=== PATIENT | male | born 1985 | race Two or more races ===

== ENCOUNTER 2024-06-20 13:26 | Inpatient (IN) | payer BC, OTHER ==
[~2024-06-20] VITALS: Ht 175.3 cm; Wt 92.0 kg
[2024-06-20] MEDS: haloperidol lactate 5mg/ml inj IVH ONE (14:02)
[2024-06-20 14:13] LABS: EOSINOPHILS # (AUTO) 0.1 X10'3 (0-0.9); HEMOGLOBIN 7.5 g/dl (14.0-17.9); MONOCYTES # (AUTO) 0.7 X10'3 (0-0.9); MONOCYTES % (AUTO) 12.1 % (2-12)
[2024-06-20 14:14] LABS: BASOPHILS # (AUTO) 0.2 X10'3 (0-0.2); BASOPHILS % (AUTO) 3.1 % (0-1); HEMATOCRIT 24.1 % (42.0-52.0); LYMPHOCYTES # (AUTO) 1.3 X10'3 (1.1-4.8); LYMPHOCYTES % (AUTO) 23.2 % (21-51); MEAN CORPUSCULAR HGB CONC 31.2 g/dL (33.0-36.5); MEAN PLATELET VOLUME 9.4 FL (7.4-10.4); NEUTROPHILS # (AUTO) 3.4 X10'3 (1.8-7.7); NEUTROPHILS % (AUTO) 59.6 % (42-75); PLATELET COUNT 63 X10'3 (140-440); RED BLOOD COUNT 2.68 X10'6 (4.70-6.10); RED CELL DISTRIBUTION WIDTH 17.8 % (11.5-14.5); WHITE BLOOD COUNT 5.7 X10'3 (4.5-11.0)
[2024-06-20 14:22] LABS: APTT 29 SECONDS (22-32); INR 1.2 INR; PROTHROMBIN TIME 12.7 SECONDS (9.0-12.0)
[2024-06-20 14:26] LABS: ALANINE AMINOTRANSFERASE 40 U/L (12-78); ALBUMIN 3.5 G/DL (3.4-5.0); ALBUMIN/GLOBULIN RATIO 0.7 (1.1-1.5); ALKALINE PHOSPHATASE 151 IU/L (46-116); ANION GAP 9 (8-16); ASPARTATE AMINO TRANSFERASE 102 U/L (10-37); BILIRUBIN,TOTAL 0.6 MG/DL (0.1-1.0); BLOOD UREA NITROGEN 6 MG/DL (7-18); BUN/CREATININE RATIO 8.2 (10.0-20.0); CALCIUM 8.5 MG/DL (8.5-10.1); CHLORIDE 106 MMOL/L (99-107); CREATININE 0.73 MG/DL (0.60-1.10); ETHANOL 167 MG/DL (<10); GLUCOSE 107 MG/DL (70-104); MAGNESIUM 1.9 MG/DL (1.5-2.4); POTASSIUM 4.1 MMOL/L (3.5-5.1); SODIUM 142 MMOL/L (135-145); TOTAL CARBON DIOXIDE 27.5 MMOL/L (24-32); TOTAL PROTEIN 8.2 G/DL (6.4-8.2); eCRCL 139 ML/MIN; eGFR > 90 ML/MIN
[2024-06-20] MEDS ORDERED: pantoprazole 40MG/NS 100ML BAG 100 ML IV ONE (14:30)
[2024-06-20] MEDS ORDERED: LORA-269 PO (14:56)
[2024-06-20] MEDS ORDERED: DIVA-76 PO (14:56)
[2024-06-20] MEDS ORDERED: LISI20TA28 PO (14:56)
[2024-06-20] MEDS: pantoprazole 40MG/NS 100ML BAG 100 ML IV ONE (14:57)
[2024-06-20 15:28] LABS: ANISOCYTOSIS 1+; PLATELET ESTIMATE DECREASED; TARGET CELLS 1+
[2024-06-20] MEDS: diazepam inj 5 MG/ML inj. IV ONE (16:24)
[2024-06-20] MEDS ORDERED: magnesium sulf-water 2g/50mL 50 ML IV PRN (17:00)
[2024-06-20] MEDS ORDERED: potassium Cl 20 mEq SR tablet PO PRN ×2 (17:00)
[2024-06-20] MEDS ORDERED: magnesium Cl slow-release 64mg tablet PO PRN (17:00)
[2024-06-20] MEDS ORDERED: ondansetron/PF 4mg/2ml inj IV PRN (17:00)
[2024-06-20] MEDS ORDERED: magnesium sulf-water 4G/100mL 100 ML IV PRN (17:00)
[2024-06-20] MEDS ORDERED: mag hydrox/Alum hydrox/simeth 30ml oral suspension PO PRN (17:00)
[2024-06-20] MEDS ORDERED: potassium Cl 40MEQ/1/2NS 520ml 520 ML IV PRN (17:00)
[2024-06-20] MEDS: pantoprazole 40MG/NS 100ML BAG 100 ML IV SCH (17:40)
[2024-06-20 17:50] LABS: LIPASE 54 U/L (16-77)
[2024-06-20 18:22] LABS: BILIRUBIN,URINE NEGATIVE (Neg); CLARITY,URINE CLEAR (Clear); COLOR,URINE YELLOW (Yellow); GLUCOSE, URINE NEGATIVE (Neg); KETONES,URINE NEGATIVE (Neg); LEUKOCYTE ESTERASE ,URINE NEGATIVE (Neg); NITRITES, URINE NEGATIVE (Neg); OCCULT BLOOD,URINE NEGATIVE (Neg); PH,URINE 6.5 (4.8-8.0); PROTEIN,URINE NEGATIVE (Neg); UROBILINOGEN,URINE 0.2 E.U/dL (0.2-1.0)
[2024-06-20] MEDS: octreotide inj. 500 MCG in normal saline 100ml IV soln 97.5 ML IV SCH (18:29)
[2024-06-20] MEDS: normal saline 1000ml 1,000 ML IV SCH (18:30)
[2024-06-20 18:31] LABS: UA COLLECTION TYPE URINAL; URINE AMPHETAMINE SCREEN NEGATIVE (Neg); URINE BARBITUATE SCREEN NEGATIVE (Neg); URINE BENZODIAZEPINES SCREEN NEGATIVE (Neg); URINE CANNABINOID SCREEN NEGATIVE (Neg); URINE COCAINE SCREEN NEGATIVE (Neg); URINE METHADONE SCREEN NEGATIVE (Neg); URINE OPIATE SCREEN NEGATIVE (Neg); URINE PHENCYCLIDINE SCREEN NEGATIVE (Neg)
[2024-06-20] MEDS: LORazepam 2 mg/ml vial IV PRN (19:38)
[2024-06-20] MEDS: docusate sod 100mg capsule PO SCH (20:00)
[2024-06-20] MEDS ORDERED: pantoprazole 40MG/NS 100ML BAG 100 ML IV SCH ×2 (20:00→21:00)
[2024-06-20] MEDS: K and/or MAG REPLACEMENT MC SCH (20:00)
[2024-06-20] MEDS: thiamine 100mg/ml 2ml inj. IV SCH (21:30)
[2024-06-21] VITALS (11 sets, daily range): BP systolic 104–144; BP diastolic 67–82; PULSE 83–110; RESP 16–22; TEMP 98.5–101.1; O2SAT 96–100
[2024-06-21] MEDS: folic acid 1mg/0.2ml inj IV SCH (07:27)
[2024-06-21] MEDS: lisinopril 20mg tablet PO SCH (08:25)
[2024-06-21 08:32] LABS: ALANINE AMINOTRANSFERASE 41 U/L (12-78); ALBUMIN 3.4 G/DL (3.4-5.0); ALBUMIN/GLOBULIN RATIO 0.7 (1.1-1.5); ALKALINE PHOSPHATASE 128 IU/L (46-116); ANION GAP 7 (8-16); ASPARTATE AMINO TRANSFERASE 103 U/L (10-37); BILIRUBIN,TOTAL 1.3 MG/DL (0.1-1.0); BLOOD UREA NITROGEN 8 MG/DL (7-18); BUN/CREATININE RATIO 9.2 (10.0-20.0); CALCIUM 8.6 MG/DL (8.5-10.1); CHLORIDE 98 MMOL/L (99-107); CREATININE 0.87 MG/DL (0.60-1.10); GLUCOSE 142 MG/DL (70-104); PHOSPHORUS 3.7 MG/DL (2.3-4.5); POTASSIUM 4.1 MMOL/L (3.5-5.1); SODIUM 134 MMOL/L (135-145); TOTAL CARBON DIOXIDE 28.6 MMOL/L (24-32); TOTAL PROTEIN 8.2 G/DL (6.4-8.2); eCRCL 116 ML/MIN; eGFR > 90 ML/MIN
[2024-06-21 08:34] LABS: BASOPHILS # (AUTO) 0.2 X10'3 (0-0.2); EOSINOPHILS # (AUTO) 0.2 X10'3 (0-0.9); HEMOGLOBIN 7.8 g/dl (14.0-17.9); INR 1.3 INR; PLATELET COUNT 53 X10'3 (140-440); PROTHROMBIN TIME 13.5 SECONDS (9.0-12.0); RED CELL DISTRIBUTION WIDTH 17.6 % (11.5-14.5); WHITE BLOOD COUNT 6.4 X10'3 (4.5-11.0)
[2024-06-21 08:35] LABS: BASOPHILS % (AUTO) 2.5 % (0-1); EOSINOPHILS % (AUTO) 2.6 % (0-6); HEMATOCRIT 24.6 % (42.0-52.0); LYMPHOCYTES # (AUTO) 1.6 X10'3 (1.1-4.8); LYMPHOCYTES % (AUTO) 24.7 % (21-51); MEAN CORPUSCULAR HEMOGLOBIN 28.2 PG (27.0-31.0); MEAN CORPUSCULAR HGB CONC 31.7 g/dL (33.0-36.5); MEAN PLATELET VOLUME 9.5 FL (7.4-10.4); MONOCYTES # (AUTO) 0.8 X10'3 (0-0.9); MONOCYTES % (AUTO) 13.2 % (2-12); NEUTROPHILS # (AUTO) 3.6 X10'3 (1.8-7.7); RED BLOOD COUNT 2.76 X10'6 (4.70-6.10)
[2024-06-21] MEDS ORDERED: LIDOcaine 2% Viscous 15ml cup ONE (10:35)
[2024-06-21] MEDS ORDERED: fentaNYL/PF 50MCG/1 ML 2ML syringe ONE (10:35)
[2024-06-21] MEDS ORDERED: MIDAZolam 1 MG/ML 5ML VIAL ONE (10:35)
[2024-06-21] MEDS ORDERED: PEG 3350/Na sulf,bicarb,Cl/KCl oral sol 4 liter bottle PO ONE (11:10)
[2024-06-21] MEDS: PEG 3350/Na sulf,bicarb,Cl/KCl oral sol 4 liter bottle PO ONE (17:04)
[2024-06-21] MEDS: acetaminophen 325mg tablet PO PRN (21:30)
[2024-06-22] VITALS (8 sets, daily range): BP systolic 105–142; BP diastolic 57–85; PULSE 97–104; RESP 14–20; TEMP 98.2–100.3; O2SAT 97–99
[2024-06-22 07:03] LABS: BASOPHILS # (AUTO) 0.1 X10'3 (0-0.2); EOSINOPHILS # (AUTO) 0.1 X10'3 (0-0.9); HEMOGLOBIN 7.8 g/dl (14.0-17.9); LYMPHOCYTES # (AUTO) 1.8 X10'3 (1.1-4.8); MEAN CORPUSCULAR HEMOGLOBIN 27.4 PG (27.0-31.0); PLATELET COUNT 56 X10'3 (140-440); RED BLOOD COUNT 2.85 X10'6 (4.70-6.10)
[2024-06-22 07:05] LABS: BASOPHILS % (AUTO) 1.1 % (0-1); EOSINOPHILS % (AUTO) 0.5 % (0-6); MEAN CORPUSCULAR HGB CONC 31.2 g/dL (33.0-36.5); MEAN CORPUSCULAR VOLUME 87.7 FL (78-98); MEAN PLATELET VOLUME 9.9 FL (7.4-10.4); MONOCYTES # (AUTO) 1.3 X10'3 (0-0.9); MONOCYTES % (AUTO) 12.6 % (2-12); NEUTROPHILS # (AUTO) 7.3 X10'3 (1.8-7.7); NEUTROPHILS % (AUTO) 68.8 % (42-75); RED CELL DISTRIBUTION WIDTH 17.6 % (11.5-14.5); WHITE BLOOD COUNT 10.7 X10'3 (4.5-11.0)
[2024-06-22 07:07] LABS: INR 1.3 INR; PROTHROMBIN TIME 14.1 SECONDS (9.0-12.0)
[2024-06-22 07:31] LABS: ALANINE AMINOTRANSFERASE 36 U/L (12-78); ALBUMIN 3.4 G/DL (3.4-5.0); ALBUMIN/GLOBULIN RATIO 0.7 (1.1-1.5); ALKALINE PHOSPHATASE 119 IU/L (46-116); ANION GAP 8 (8-16); ASPARTATE AMINO TRANSFERASE 84 U/L (10-37); BILIRUBIN,TOTAL 1.5 MG/DL (0.1-1.0); BLOOD UREA NITROGEN 8 MG/DL (7-18); BUN/CREATININE RATIO 10.3 (10.0-20.0); CALCIUM 8.6 MG/DL (8.5-10.1); CHLORIDE 95 MMOL/L (99-107); CREATININE 0.78 MG/DL (0.60-1.10); GLUCOSE 111 MG/DL (70-104); PHOSPHORUS 3.5 MG/DL (2.3-4.5); POTASSIUM 3.6 MMOL/L (3.5-5.1); SODIUM 127 MMOL/L (135-145); TOTAL PROTEIN 8.2 G/DL (6.4-8.2); eCRCL 130 ML/MIN; eGFR > 90 ML/MIN
[2024-06-22] MEDS: pantoprazole 40mg Tablet.DR PO SCH (07:36)
[2024-06-22 07:43] LABS: ANISOCYTOSIS 1+; PLATELET ESTIMATE DECREASED; POIKILOCYTOSIS FEW; POLYCHROMASIA FEW; TARGET CELLS 1+
[2024-06-22 16:34] LABS: SODIUM,URINE RANDOM 163 MEQ/L
[2024-06-22 16:36] LABS: OSMOLALITY UA 656 MOSM/K (50-1400)
[2024-06-22 16:44] LABS: ALBUMIN 3.5 G/DL (3.4-5.0); ANION GAP 10 (8-16); BLOOD UREA NITROGEN 9 MG/DL (7-18); BUN/CREATININE RATIO 10.6 (10.0-20.0); CALCIUM 9.1 MG/DL (8.5-10.1); CHLORIDE 95 MMOL/L (99-107); CREATININE 0.85 MG/DL (0.60-1.10); GLUCOSE 107 MG/DL (70-104); POTASSIUM 3.8 MMOL/L (3.5-5.1); SODIUM 129 MMOL/L (135-145); TOTAL CARBON DIOXIDE 23.7 MMOL/L (24-32); eCRCL 119 ML/MIN; eGFR > 90 ML/MIN
[2024-06-23 02:00] VITALS: BP 121/73; PULSE 98; RESP 14; TEMP 98.7; O2SAT 96
[2024-06-23] MEDS: LORazepam 2 mg/ml vial IV PRN (05:04)
[2024-06-23 06:00] VITALS: BP 128/80; PULSE 100; RESP 18; TEMP 100.1; O2SAT 96
[2024-06-23 07:20] LABS: BASOPHILS # (AUTO) 0.1 X10'3 (0-0.2); BASOPHILS % (AUTO) 0.8 % (0-1); EOSINOPHILS # (AUTO) 0.1 X10'3 (0-0.9); EOSINOPHILS % (AUTO) 0.5 % (0-6); HEMATOCRIT 24.5 % (42.0-52.0); HEMOGLOBIN 7.7 g/dl (14.0-17.9); LYMPHOCYTES # (AUTO) 1.7 X10'3 (1.1-4.8); LYMPHOCYTES % (AUTO) 15.5 % (21-51); MEAN CORPUSCULAR HEMOGLOBIN 27.5 PG (27.0-31.0); MEAN CORPUSCULAR HGB CONC 31.3 g/dL (33.0-36.5); MEAN CORPUSCULAR VOLUME 87.9 FL (78-98); MEAN PLATELET VOLUME 10.8 FL (7.4-10.4); MONOCYTES # (AUTO) 1.7 X10'3 (0-0.9); MONOCYTES % (AUTO) 15.2 % (2-12); NEUTROPHILS # (AUTO) 7.7 X10'3 (1.8-7.7); PLATELET COUNT 69 X10'3 (140-440); RED BLOOD COUNT 2.78 X10'6 (4.70-6.10); RED CELL DISTRIBUTION WIDTH 17.7 % (11.5-14.5); WHITE BLOOD COUNT 11.3 X10'3 (4.5-11.0)
[2024-06-23 07:28] LABS: INR 1.5 INR; PROTHROMBIN TIME 15.3 SECONDS (9.0-12.0)
[2024-06-23 07:53] LABS: ALANINE AMINOTRANSFERASE 31 U/L (12-78); ALBUMIN 3.2 G/DL (3.4-5.0); ALBUMIN/GLOBULIN RATIO 0.7 (1.1-1.5); ALKALINE PHOSPHATASE 136 IU/L (46-116); ANION GAP 10 (8-16); ASPARTATE AMINO TRANSFERASE 75 U/L (10-37); BILIRUBIN,TOTAL 1.6 MG/DL (0.1-1.0); BLOOD UREA NITROGEN 8 MG/DL (7-18); CALCIUM 8.4 MG/DL (8.5-10.1); CHLORIDE 95 MMOL/L (99-107); GLUCOSE 106 MG/DL (70-104); PHOSPHORUS 2.8 MG/DL (2.3-4.5); POTASSIUM 3.6 MMOL/L (3.5-5.1); SODIUM 127 MMOL/L (135-145); TOTAL CARBON DIOXIDE 21.8 MMOL/L (24-32); eCRCL 126 ML/MIN; eGFR > 90 ML/MIN
[2024-06-23 08:00] VITALS: RESP 20; O2SAT 99
[2024-06-23 09:54] LABS: ANISOCYTOSIS 1+; LARGE PLATELETS FEW; PLATELET ESTIMATE DECREASED; TARGET CELLS FEW
[2024-06-23 09:55] LABS: ACANTHOCYTES FEW; HYPOCHROMASIA 1+
[2024-06-23 11:00] VITALS: BP 129/73; PULSE 119; RESP 21; TEMP 100.3; O2SAT 98
[2024-06-23 15:26] LABS: CREATINE KINASE 115 U/L (39-308)
[2024-06-23] MEDS: thiamine 100mg tablet PO SCH (16:52)
[2024-06-23] MEDS: multivitamins, therapeutics tablet PO SCH (16:53)
[2024-06-23 20:00] VITALS: RESP 18; O2SAT 99
[2024-06-23 22:00] VITALS: BP 106/54; PULSE 98; RESP 18; TEMP 98.2; O2SAT 97
[2024-06-24] VITALS (8 sets, daily range): BP systolic 103–132; BP diastolic 53–67; PULSE 74–103; RESP 15–18; TEMP 98.3–99.5; O2SAT 97–100
[2024-06-24 06:20] LABS: BASOPHILS # (AUTO) 0.1 X10'3 (0-0.2); BASOPHILS % (AUTO) 1.1 % (0-1); EOSINOPHILS # (AUTO) 0.1 X10'3 (0-0.9); EOSINOPHILS % (AUTO) 1.5 % (0-6); HEMATOCRIT 23.2 % (42.0-52.0); HEMOGLOBIN 7.3 g/dl (14.0-17.9); LYMPHOCYTES # (AUTO) 1.8 X10'3 (1.1-4.8); LYMPHOCYTES % (AUTO) 18.1 % (21-51); MEAN CORPUSCULAR HEMOGLOBIN 27.7 PG (27.0-31.0); MEAN CORPUSCULAR HGB CONC 31.6 g/dL (33.0-36.5); MEAN CORPUSCULAR VOLUME 87.7 FL (78-98); MEAN PLATELET VOLUME 9.9 FL (7.4-10.4); MONOCYTES # (AUTO) 1.9 X10'3 (0-0.9); MONOCYTES % (AUTO) 18.9 % (2-12); NEUTROPHILS # (AUTO) 6.1 X10'3 (1.8-7.7); NEUTROPHILS % (AUTO) 60.4 % (42-75); PLATELET COUNT 83 X10'3 (140-440); RED BLOOD COUNT 2.64 X10'6 (4.70-6.10); WHITE BLOOD COUNT 10.1 X10'3 (4.5-11.0)
[2024-06-24 06:21] LABS: INR 1.4 INR; PROTHROMBIN TIME 14.2 SECONDS (9.0-12.0)
[2024-06-24 06:37] LABS: ALANINE AMINOTRANSFERASE 31 U/L (12-78); ALBUMIN 2.9 G/DL (3.4-5.0); ALBUMIN/GLOBULIN RATIO 0.6 (1.1-1.5); ALKALINE PHOSPHATASE 133 IU/L (46-116); ANION GAP 10 (8-16); ASPARTATE AMINO TRANSFERASE 57 U/L (10-37); BILIRUBIN,TOTAL 1.4 MG/DL (0.1-1.0); BLOOD UREA NITROGEN 12 MG/DL (7-18); BUN/CREATININE RATIO 16.4 (10.0-20.0); CALCIUM 8.5 MG/DL (8.5-10.1); CHLORIDE 95 MMOL/L (99-107); CREATININE 0.73 MG/DL (0.60-1.10); GLUCOSE 103 MG/DL (70-104); PHOSPHORUS 3.6 MG/DL (2.3-4.5); POTASSIUM 3.7 MMOL/L (3.5-5.1); SODIUM 126 MMOL/L (135-145); TOTAL CARBON DIOXIDE 21.1 MMOL/L (24-32); TOTAL PROTEIN 7.6 G/DL (6.4-8.2); eCRCL 139 ML/MIN; eGFR > 90 ML/MIN
[2024-06-24] MEDS: magnesium hydroxide 30ml (MOM) UD suspension PO PRN (08:46)
[2024-06-24 09:11] LABS: ANISOCYTOSIS 1+; NUCLEATED RED BLOOD CELLS 1 /100WBC (0-0); PLATELET ESTIMATE DECREASED; TOTAL CELLS COUNTED 100
[2024-06-24 09:12] LABS: BURR CELLS FEW; ELLIPTOCYTES FEW; HYPOCHROMASIA 1+; POLYCHROMASIA FEW; TARGET CELLS FEW
[2024-06-24] MEDS: normal saline 500ml IV soln 1,000 ML IV ONE (11:50)
[2024-06-24] MEDS: normal saline 1000ml 1,000 ML IV SCH (12:30)
[2024-06-24 17:32] LABS: ALBUMIN 2.8 G/DL (3.4-5.0); ANION GAP 11 (8-16); BLOOD UREA NITROGEN 15 MG/DL (7-18); BUN/CREATININE RATIO 17.2 (10.0-20.0); CALCIUM 8.4 MG/DL (8.5-10.1); CHLORIDE 98 MMOL/L (99-107); CREATININE 0.87 MG/DL (0.60-1.10); GLUCOSE 126 MG/DL (70-104); SODIUM 130 MMOL/L (135-145); TOTAL CARBON DIOXIDE 21.1 MMOL/L (24-32); eCRCL 116 ML/MIN; eGFR > 90 ML/MIN
[2024-06-25] VITALS (7 sets, daily range): BP systolic 100–121; BP diastolic 52–77; PULSE 73–95; RESP 14–19; TEMP 98.4–99.9; O2SAT 97–100
[2024-06-25 06:24] LABS: BASOPHILS # (AUTO) 0.1 X10'3 (0-0.2); BASOPHILS % (AUTO) 1.8 % (0-1); EOSINOPHILS # (AUTO) 0.2 X10'3 (0-0.9); EOSINOPHILS % (AUTO) 2.3 % (0-6); HEMATOCRIT 24.6 % (42.0-52.0); HEMOGLOBIN 7.8 g/dl (14.0-17.9); LYMPHOCYTES % (AUTO) 24.4 % (21-51); MEAN CORPUSCULAR HEMOGLOBIN 27.6 PG (27.0-31.0); MEAN CORPUSCULAR HGB CONC 31.5 g/dL (33.0-36.5); MEAN CORPUSCULAR VOLUME 87.4 FL (78-98); MEAN PLATELET VOLUME 9.1 FL (7.4-10.4); MONOCYTES # (AUTO) 1.5 X10'3 (0-0.9); NEUTROPHILS # (AUTO) 4.4 X10'3 (1.8-7.7); NEUTROPHILS % (AUTO) 53.5 % (42-75); PLATELET COUNT 105 X10'3 (140-440); RED BLOOD COUNT 2.81 X10'6 (4.70-6.10); RED CELL DISTRIBUTION WIDTH 17.8 % (11.5-14.5); WHITE BLOOD COUNT 8.2 X10'3 (4.5-11.0)
[2024-06-25 06:27] LABS: INR 1.3 INR; PROTHROMBIN TIME 13.3 SECONDS (9.0-12.0)
[2024-06-25 06:36] LABS: ALANINE AMINOTRANSFERASE 30 U/L (12-78); ALBUMIN 2.8 G/DL (3.4-5.0); ALBUMIN/GLOBULIN RATIO 0.6 (1.1-1.5); ALKALINE PHOSPHATASE 163 IU/L (46-116); ANION GAP 7 (8-16); ASPARTATE AMINO TRANSFERASE 60 U/L (10-37); BLOOD UREA NITROGEN 11 MG/DL (7-18); BUN/CREATININE RATIO 14.7 (10.0-20.0); CALCIUM 8.6 MG/DL (8.5-10.1); CHLORIDE 100 MMOL/L (99-107); CREATININE 0.75 MG/DL (0.60-1.10); GLUCOSE 99 MG/DL (70-104); PHOSPHORUS 3.3 MG/DL (2.3-4.5); SODIUM 128 MMOL/L (135-145); TOTAL CARBON DIOXIDE 21.1 MMOL/L (24-32); TOTAL PROTEIN 7.6 G/DL (6.4-8.2); eCRCL 135 ML/MIN; eGFR > 90 ML/MIN
[2024-06-25 07:30] LABS: ANISOCYTOSIS 1+; HYPOCHROMASIA 1+; PLATELET ESTIMATE DECREASED; TOTAL CELLS COUNTED 100
[2024-06-25 07:32] LABS: LARGE PLATELETS FEW
[2024-06-25 07:33] LABS: ACANTHOCYTES FEW
[2024-06-25 07:34] LABS: POLYCHROMASIA FEW; SCHISTOCYTES FEW
[2024-06-25] MEDS ORDERED: LORazepam 2 mg/ml vial IV PRN (09:35)
[2024-06-25] MEDS: folic acid 1mg tablet PO SCH (16:45)
[2024-06-25] MEDS: LORazepam 1 MG tablet PO PRN (19:54)
[2024-06-26 06:00] VITALS: BP 115/77; PULSE 91; RESP 15; TEMP 99.3; O2SAT 98
[2024-06-26 06:16] LABS: INR 1.3 INR; PROTHROMBIN TIME 13.8 SECONDS (9.0-12.0)
[2024-06-26 06:24] LABS: ALANINE AMINOTRANSFERASE 37 U/L (12-78); ALBUMIN 2.8 G/DL (3.4-5.0); ALBUMIN/GLOBULIN RATIO 0.6 (1.1-1.5); ALKALINE PHOSPHATASE 192 IU/L (46-116); ANION GAP 8 (8-16); ASPARTATE AMINO TRANSFERASE 76 U/L (10-37); BILIRUBIN,TOTAL 0.9 MG/DL (0.1-1.0); BLOOD UREA NITROGEN 10 MG/DL (7-18); CALCIUM 8.9 MG/DL (8.5-10.1); CHLORIDE 96 MMOL/L (99-107); CREATININE 0.83 MG/DL (0.60-1.10); GLUCOSE 104 MG/DL (70-104); PHOSPHORUS 3.8 MG/DL (2.3-4.5); POTASSIUM 4.1 MMOL/L (3.5-5.1); SODIUM 126 MMOL/L (135-145); TOTAL CARBON DIOXIDE 22.4 MMOL/L (24-32); TOTAL PROTEIN 7.5 G/DL (6.4-8.2); eCRCL 122 ML/MIN; eGFR > 90 ML/MIN
[2024-06-26 06:27] LABS: BASOPHILS # (AUTO) 0.1 X10'3 (0-0.2); BASOPHILS % (AUTO) 1.7 % (0-1); EOSINOPHILS # (AUTO) 0.3 X10'3 (0-0.9); EOSINOPHILS % (AUTO) 3.9 % (0-6); HEMATOCRIT 23.1 % (42.0-52.0); HEMOGLOBIN 7.4 g/dl (14.0-17.9); LYMPHOCYTES # (AUTO) 1.6 X10'3 (1.1-4.8); MEAN CORPUSCULAR HGB CONC 32.1 g/dL (33.0-36.5); MEAN CORPUSCULAR VOLUME 87.3 FL (78-98); MEAN PLATELET VOLUME 9.2 FL (7.4-10.4); MONOCYTES # (AUTO) 1.4 X10'3 (0-0.9); MONOCYTES % (AUTO) 17.7 % (2-12); NEUTROPHILS # (AUTO) 4.5 X10'3 (1.8-7.7); NEUTROPHILS % (AUTO) 56.7 % (42-75); PLATELET COUNT 121 X10'3 (140-440); RED BLOOD COUNT 2.64 X10'6 (4.70-6.10); RED CELL DISTRIBUTION WIDTH 17.5 % (11.5-14.5)
[2024-06-26] MEDS: lisinopril 10 MG tablet PO SCH (07:41)
[2024-06-26 08:00] VITALS: RESP 15; O2SAT 98
[2024-06-26 10:00] VITALS: BP 102/52; PULSE 94; RESP 16; TEMP 99.2; O2SAT 100
[2024-06-26] MEDS: LIDOcaine 40mg/ml topical solution MM ONE (12:55)
[2024-06-26] MEDS: HYDROcodone/acetaminophen 10/325mg tab PO ONE (12:56)
[2024-06-26] MEDS: sodium chloride 1gm tablet PO SCH (13:00)
[2024-06-26 17:25] VITALS: BP 105/59; PULSE 84; RESP 18; TEMP 98.5; O2SAT 100
[2024-06-26 18:00] VITALS: BP 105/58; PULSE 88; RESP 17; TEMP 98.9; O2SAT 100
[2024-06-26 22:00] VITALS: BP 111/63; PULSE 86; RESP 16; TEMP 97.5; O2SAT 97
[2024-06-27] MEDS: haloperidol lactate 5mg/ml inj IM PRN (03:31)
[2024-06-27 06:00] VITALS: BP 102/50; PULSE 92; RESP 19; TEMP 98.4; O2SAT 95
[2024-06-27 06:02] VITALS: BP 89/50; PULSE 92; RESP 19; TEMP 98.4; O2SAT 95
[2024-06-27 08:00] VITALS: RESP 19; O2SAT 95
[2024-06-27 09:44] LABS: INR 1.3 INR; PROTHROMBIN TIME 13.1 SECONDS (9.0-12.0)
[2024-06-27 09:48] LABS: BASOPHILS # (AUTO) 0.2 X10'3 (0-0.2); BASOPHILS % (AUTO) 1.8 % (0-1); EOSINOPHILS # (AUTO) 0.3 X10'3 (0-0.9); EOSINOPHILS % (AUTO) 3.2 % (0-6); HEMATOCRIT 25.7 % (42.0-52.0); LYMPHOCYTES # (AUTO) 1.9 X10'3 (1.1-4.8); LYMPHOCYTES % (AUTO) 20.4 % (21-51); MEAN CORPUSCULAR HEMOGLOBIN 27.3 PG (27.0-31.0); MEAN CORPUSCULAR HGB CONC 31.2 g/dL (33.0-36.5); MEAN CORPUSCULAR VOLUME 87.6 FL (78-98); MEAN PLATELET VOLUME 8.9 FL (7.4-10.4); MONOCYTES # (AUTO) 1.4 X10'3 (0-0.9); MONOCYTES % (AUTO) 14.4 % (2-12); NEUTROPHILS # (AUTO) 5.7 X10'3 (1.8-7.7); NEUTROPHILS % (AUTO) 60.2 % (42-75); PLATELET COUNT 184 X10'3 (140-440); RED BLOOD COUNT 2.93 X10'6 (4.70-6.10); WHITE BLOOD COUNT 9.4 X10'3 (4.5-11.0)
[2024-06-27 09:49] LABS: ALANINE AMINOTRANSFERASE 56 U/L (12-78); ALBUMIN 3.2 G/DL (3.4-5.0); ALBUMIN/GLOBULIN RATIO 0.6 (1.1-1.5); ALKALINE PHOSPHATASE 271 IU/L (46-116); ANION GAP 12 (8-16); ASPARTATE AMINO TRANSFERASE 110 U/L (10-37); BILIRUBIN,TOTAL 0.7 MG/DL (0.1-1.0); BLOOD UREA NITROGEN 13 MG/DL (7-18); BUN/CREATININE RATIO 13.8 (10.0-20.0); CALCIUM 9.2 MG/DL (8.5-10.1); CHLORIDE 95 MMOL/L (99-107); CREATININE 0.94 MG/DL (0.60-1.10); GLUCOSE 133 MG/DL (70-104); POTASSIUM 4.1 MMOL/L (3.5-5.1); SODIUM 128 MMOL/L (135-145); TOTAL CARBON DIOXIDE 21.2 MMOL/L (24-32); TOTAL PROTEIN 8.3 G/DL (6.4-8.2); eCRCL 108 ML/MIN; eGFR 90 ML/MIN
[2024-06-27 10:08] LABS: ANISOCYTOSIS 1+; PLATELET ESTIMATE NORMAL; TARGET CELLS 1+
[2024-06-27] MEDS ORDERED: THIA50TA10 PO (12:24)
[2024-06-27] MEDS ORDERED: PANT40TA54 PO (12:24)
[2024-06-27] MEDS ORDERED: MULT-1085 PO (12:24)
[2024-06-27] MEDS ORDERED: FOLI0.4T6 PO (12:24)
[2024-06-27] MEDS ORDERED: SODI1TAB2 PO (12:24)
== END 2024-06-27 13:05 | disposition home or self-care (01) | DRG 369 ==
LOC: ER 13:27 → ED HOLD 17:12 → UNDODISIN 20:30 → PCU 3S 21:30 → ORTHO 4S 06-25 10:44
PROVIDERS: ADMIT Internal Medicine; ATTEND Internal Medicine
PROC: 30233N1 Transfusion of Nonautologous Red Blood Cells into Peripheral Vein, Percutaneous Approach (ICD-10-PCS; 2024-06-20)
PROC: 0DB78ZX Excision of Stomach, Pylorus, Via Natural or Artificial Opening Endoscopic, Diagnostic (ICD-10-PCS; 2024-06-21)
PROC: 0S9C3ZZ Drainage of Right Knee Joint, Percutaneous Approach (ICD-10-PCS; principal; 2024-06-26)
DX: K21.01 Gastro-esophageal reflux disease with esophagitis, with bleeding (principal); E51.2 Wernicke's encephalopathy; E87.1 Hypo-osmolality and hyponatremia; F10.239 Alcohol dependence with withdrawal, unspecified; F10.229 Alcohol dependence with intoxication, unspecified; D64.9 Anemia, unspecified; I10 Essential (primary) hypertension; K29.70 Gastritis, unspecified, without bleeding; K70.30 Alcoholic cirrhosis of liver without ascites; D69.6 Thrombocytopenia, unspecified; M25.461 Effusion, right knee; X58.XXXA Exposure to other specified factors, initial encounter; S83.289A Other tear of lateral meniscus, current injury, unspecified knee, initial encounter; Z88.8 Allergy status to other drugs, medicaments and biological substances; Y93.89 Activity, other specified; Y92.89 Other specified places as the place of occurrence of the external cause; Y99.8 Other external cause status
CPT/HCPCS: 36415; 36430; 43239; 71045; 73560; 73600; 73721; 76700; 80048; 80053; 80305; 80320; 81003; 82140; 82550; 83690; 83735; 83930; 83935; 84100; 84300; 85007; 85008; 85025; 85610; 85730; 86078; 86885; 86900; 86901; 86920; 87081; 93005; 97110; 97116; 97161; 97530; 97535; 99152; 99285; A4615; A4620; A6258; A6449; A6590; G0378; J1630; J2060; J2250; J2354; J2470; J3010; J3360; J3411; J3490; J7030; J7040; P9016